=== PATIENT | female | born 1970 | race Caucasian/White ===

== ENCOUNTER 2016-12-06 13:30 | Emergency (ER) | payer OTHER ==
[2016-12-06 14:05] VITALS: BP 138/89
--- NOTE | 2016-12-06 14:39 | UC ---
Lower Extremity/Ankle HPI - HPI Summary HPI Summary: The patient comes in today for: 1. Right foot pain: Onset: 3 days ago. Palliative/provocative: Walking on the foot makes it worse. Wearing a post-op shoe seems to help. Quality: "shooting up my leg." Region: Right foot. Severity: 10/10 at this time, but she is not crying or grimacing, but is laughing at times. Time: Constant. Associated symptoms: Event: She had a slow increased in pain of her right foot. She states that there are spasms there. She thinks that she broke a bone lifting a foot stool with her foot. * - History of Current Complaint Chief Complaint: UCLowerExtremity Stated Complaint: RIGHT FOOT PAIN Time Seen by Provider: 12/06/16 14:32 Hx Obtained From: Patient Hx Last Menstrual Period: 8 yrs - Allergies/Home Medications Allergies/Adverse Reactions: Allergies Allergy/AdvReac Type Severity Reaction Status Date / Time Bupropion [From Wellbutrin] Allergy Severe Anaphylatic Verified 12/06/16 14:06 Shock Gabapentin Allergy Palpitation Verified 12/06/16 14:07 s PMH/Surg Hx/FS Hx/Imm Hx Previously Healthy: Yes - She denies all the diagnoses below except the ones circled. Psychological History: Depression - She stopped her medication, but complains of depression. Other History Of: Negative For: HIV, Hepatitis B, Hepatitis C, Anticoagulant Therapy - Surgical History Surgical History: Yes Surgery Procedure, Year, and Place: 02/18 HYSTERECTOMY. 05.03.12 HERNIA REPAIR. 05/21 DRAINAGE FOR INFECTION IN ABDOMEN. 06.12.12 DRAINAGE TUBE REMOVED. 2 C- SECT. T&A - Family History Known Family History: Positive: Cardiac Disease, Hypertension - Social History Occupation: Unemployed Lives: Alone Alcohol Use: None Substance Use Type: None Smoking Status (MU): Heavy Every Day Tobacco Smoker Type: Cigarettes Amount Used/How Often: 1 PPD Length of Time of Smoking/Using Tobacco: 26 Years Have You Smoked in the Last Year: Yes Household Exposure Type: Cigarettes Review of Systems Constitutional: Negative Skin: Negative Eyes: Negative ENT: Negative Respiratory: Negative All Other Systems Reviewed And Are Negative: Yes Physical Exam Triage Information Reviewed: Yes Appearance: Well-Appearing, No Pain Distress - Despite he stating that she is a 10/10 pain, she is laughing at times, and declines any pain medication even though she has not had any recently. She also wanted to walk to the x-ray department., Well-Nourished Vital Signs: Initial Vital Signs Temp 99.4 F 12/06/16 13:52 Pulse 81 12/06/16 13:52 Resp 18 12/06/16 13:52 BP 138/89 12/06/16 13:52 Vital Signs Reviewed: Yes Eyes: Positive: Conjunctiva Clear. Negative: Discharge ENT: Positive: Hearing grossly normal, Other: - Ears: Bilateral cerumen, but no canal erythema or edema. Mouth: mucous membranes pink and moist.. Negative: Pharyngeal erythema, Nasal congestion, Nasal drainage Dental: Negative: Gross Decay/Caries @, Dental Fracture @ Neck: Positive: Supple, Nontender, No Lymphadenopathy. Negative: Nuchal Rigidity Respiratory: Positive: Lungs clear, No respiratory distress, No accessory muscle use Cardiovascular: Positive: RRR, No Murmur Abdomen Description: Positive: Nontender, No Organomegaly, Soft. Negative: Distended, Guarding Musculoskeletal: Positive: Other: - Right foot: There is no edema, or erythema or ecchymosis of the top of her foot where she states that the pain is present. Flexion of the toes does not make the pain worse, but with extension of the toes, she had pain.. Negative: ROM Intact, No Edema Neurological: Positive: Alert, Muscle Tone Normal Psychological: Positive: Age Appropriate Behavior, Consolable Skin: Negative: rashes, breakdown Diagnostics - Radiology No standard instances Xray Interpretation: No Acute Changes Radiology Interpretation Completed By: Radiologist Lower Extremity Course/Dx - Differential Dx/Diagnosis Differential Diagnosis/HQI/PQRI: Cellulitis, Fracture (Closed), Sprain Provider Diagnoses: Tendonitis of the right foot. Discharge - Discharge Plan Condition: Stable Disposition: HOME Patient Education Materials: Tendinitis (ED) Referrals: CECILIA Nava [Primary Care Provider] - 1 Week (Please see your primary care provider in about one to two weeks to see how well you are doing. If you get worse, please be seen sooner.) Additional Instructions: Please stop your ibuprofen for three days while taking the prednisone.
--- NOTE | 2016-12-06 15:05 | RAD ---
INDICATION: Right foot pain COMPARISON: None TECHNIQUE: AP, lateral, and oblique views were obtained. FINDINGS: There is no acute fracture or dislocation. There is mild degenerative spurring over the dorsum of the midfoot There is soft tissue swelling. The soft tissues are normal IMPRESSION: NO ACUTE FRACTURE.
== END 2016-12-06 15:22 | disposition home or self-care (01) ==
LOC: UCCORT 13:30
DX: M77.51 Other enthesopathy of right foot and ankle (principal); Z72.0 Tobacco use
CPT/HCPCS: 99212; G0463

== ENCOUNTER 2018-01-31 09:00 | Emergency (ER) | payer OTHER ==
[2018-01-31 09:28] VITALS: BP 127/87
--- NOTE | 2018-01-31 09:51 | UC ---
Upper Extremity HPI - HPI Summary HPI Summary: Right arm pain for two days which started suddenly after lifting a heavy garbage. No new neck pain or numbness. She points to the pain being inthe anterior biceps. - History of Current Complaint Chief Complaint: UCTrauma Stated Complaint: RT ARM INJURY Time Seen by Provider: 01/31/18 09:44 Hx Obtained From: Patient Hx Last Menstrual Period: 8 yrs Onset/Duration: Sudden Onset, Lasting Days Severity Initially: Moderate Severity Currently: Moderate Pain Intensity: 5 Location Of Pain: Is Discrete @ - anterior biceps. Character: Sharp, Aching Aggravating Factor(s): Movement, Lifting, Flexion, Extension Alleviating Factor(s): Elevation Associated Signs And Symptoms: Negative: Swelling, Bruising, Fever, Weakness, Numbness/Tingling Related History: Dominant Hand Right - Allergies/Home Medications Allergies/Adverse Reactions: Allergies Allergy/AdvReac Type Severity Reaction Status Date / Time bupropion Allergy Severe Anaphylatic Verified 01/31/18 09:30 Shock gabapentin AdvReac Intermediate heart Verified 01/31/18 09:30 palpitations Home Medications: Home Medications cloNIDine TAB* [Catapres 0.1 MG TAB*] 0.1 mg PO DAILY 01/31/18 [History Confirmed 01/31/18] traMADol TAB* [Ultram*] 25 mg PO Q6HR PRN 01/31/18 [History Confirmed 01/31/18] PMH/Surg Hx/FS Hx/Imm Hx Previously Healthy: No - spine disease. Other History Of: Negative For: HIV, Hepatitis B, Hepatitis C, Anticoagulant Therapy - Surgical History Surgical History: Yes Surgery Procedure, Year, and Place: 02/18 HYSTERECTOMY-Partial. 05.03.12 HERNIA REPAIR, spigilean + umbilical. 05/21 DRAINAGE FOR INFECTION IN ABDOMEN. 06.12.12 DRAINAGE TUBE REMOVED. 2 C-SECT. T&A - Family History Known Family History: Positive: Cardiac Disease, Hypertension - Social History Lives: With Family Alcohol Use: None Substance Use Type: None Smoking Status (MU): Heavy Every Day Tobacco Smoker Type: Cigarettes Amount Used/How Often: 1 PPD Length of Time of Smoking/Using Tobacco: 26 Years Have You Smoked in the Last Year: Yes Household Exposure Type: Cigarettes Review of Systems Musculoskeletal: Arthralgia, Myalgia All Other Systems Reviewed And Are Negative: Yes Physical Exam Triage Information Reviewed: Yes Appearance: Well-Appearing, No Pain Distress, Obese Vital Signs: Initial Vital Signs Temp 98.8 F 01/31/18 09:24 Pulse 76 01/31/18 09:24 Resp 16 01/31/18 09:24 BP 127/87 01/31/18 09:24 Pulse Ox 99 01/31/18 09:24 Vital Signs Reviewed: Yes Eyes: Positive: Conjunctiva Clear ENT: Positive: Normal ENT inspection Neck: Positive: Supple, Nontender. Negative: Nuchal Rigidity Respiratory: Negative: Respiratory distress Cardiovascular: Positive: Brisk Capillary Refill Abdomen Description: Positive: Distended Musculoskeletal: Positive: Other: - Right anterior biceps pain without deformity or asymmetry or bruising. Hook sign intact. There is no weakness or severe pain with active forearm suppination or pronation. There is no shoulder tenderness or pain with lateral abduction. Neurological: Positive: Alert, Muscle Tone Normal. Negative: Fatigued Psychological: Positive: Age Appropriate Behavior Skin: Negative: rashes Upper Extremity Course/Dx - Course Course Of Treatment: possible small biceps muscle tear. There is no bruising or obvious weakness. No tendon rupture. - Differential Dx/Diagnosis Provider Diagnoses: biceps injury. Discharge - Sign-Out/Discharge Documenting (check all that apply): Patient Departure - Discharge Plan Condition: Good Disposition: HOME Patient Education Materials: Muscle Strain (ED) Referrals: Ebenezer Anderson MD [Medical Doctor] - Mary Davey MD [Primary Care Provider] - - Billing Disposition and Condition Condition: GOOD Disposition: Home
== END 2018-01-31 09:51 | disposition home or self-care (01) ==
LOC: UCCORT 09:00
DX: S46.901A Unspecified injury of unspecified muscle, fascia and tendon at shoulder and upper arm level, right arm, initial encounter (principal); F17.210 Nicotine dependence, cigarettes, uncomplicated; X50.0XXA Overexertion from strenuous movement or load, initial encounter; Z88.8 Allergy status to other drugs, medicaments and biological substances; Y93.89 Activity, other specified; Y92.9 Unspecified place or not applicable
CPT/HCPCS: 99212; G0463

== ENCOUNTER 2019-03-24 14:16 | Emergency (ER) | payer OTHER ==
[2019-03-24 14:43] VITALS: BP 133/80
--- NOTE | 2019-03-24 15:04 | UC ---
Palpitation/Dysrhythmia HP - HPI Summary HPI Summary: 48 yo female with three day hx of palpitations and weakness/dizziness heart rate races into the 130s with minimal effort and she needs to sit down no CP she does become diaphoretic with these spells being worked up by Dr. Hernandez for right neck swelling recently started potassium supplements for low K (two seeks ago) no n/v has gained 5 pounds the past few weeks - History of Current Complaint Chief Complaint: UCGeneralIllness Stated Complaint: RACING HEART Time Seen by Provider: 03/24/19 14:28 Hx Obtained From: Patient Hx Last Menstrual Period: 2011 Onset/Duration: Gradual Onset, Lasting Weeks Timing: Intermittent Episodes Lasting: - minutes Severity Initially: Moderate Pain Intensity: 8 - chronic LBP Character: Fast, Pounding Aggravating Factor(s): Exertion Alleviating Factor(s): Rest Associated Signs & Symptoms: Positive: Lightheadedness, Dizzy - Allergy/Home Medications Allergies/Adverse Reactions: Allergies Allergy/AdvReac Type Severity Reaction Status Date / Time bupropion Allergy Severe Anaphylatic Verified 03/24/19 14:43 Shock gabapentin AdvReac Intermediate heart Verified 03/24/19 14:43 palpitations mold mildew Allergy Itching Uncoded 03/24/19 14:43 Home Medications: Home Medications Biotin 0 mg PO QAM 03/24/19 [History Confirmed 03/24/19] Hctz 1 dose PO QAM 03/24/19 [History Confirmed 03/24/19] Potassium 10 units PO QAM 03/24/19 [History Confirmed 03/24/19] PMH/Surg Hx/FS Hx/Imm Hx Previously Healthy: Yes Cardiovascular History: Hypertension Other History Of: Negative For: HIV, Hepatitis B, Hepatitis C, Anticoagulant Therapy - Surgical History Surgical History: Yes Surgery Procedure, Year, and Place: 02/18 HYSTERECTOMY-Partial. 05.03.12 HERNIA REPAIR, spigilean + umbilical. 05/21 DRAINAGE FOR INFECTION IN ABDOMEN. 06.12.12 DRAINAGE TUBE REMOVED. 2 C-SECT. T&A - Family History Known Family History: Positive: Cardiac Disease, Hypertension - Social History Alcohol Use: None Substance Use Type: None Smoking Status (MU): Light Every Day Tobacco Smoker Type: Cigarettes Amount Used/How Often: 1 PPD Length of Time of Smoking/Using Tobacco: 26 Years Have You Smoked in the Last Year: Yes Household Exposure Type: Cigarettes Review of Systems All Other Systems Reviewed And Are Negative: Yes Constitutional: Positive: Fatigue Skin: Positive: Negative Eyes: Positive: Negative ENT: Positive: Negative Respiratory: Positive: Negative Cardiovascular: Positive: Palpitations Gastrointestinal: Positive: Negative Genitourinary: Positive: Frequency Musculoskeletal: Positive: Other: - chronic LBP Neurological: Positive: Negative Psychological: Positive: Negative Physical Exam Triage Information Reviewed: Yes Appearance: Well-Appearing, No Pain Distress, Well-Nourished Vital Signs: Initial Vital Signs Temp 98.8 F 03/24/19 14:32 Pulse 95 03/24/19 14:32 Resp 18 03/24/19 14:32 BP 133/80 03/24/19 14:32 Pulse Ox 98 03/24/19 14:32 Vital Signs Reviewed: Yes Eyes: Positive: Conjunctiva Clear ENT: Positive: Hearing grossly normal. Negative: Nasal congestion, Nasal drainage, Trismus, Muffled voice, Hoarse voice Neck: Positive: Supple, Nontender, No Lymphadenopathy Respiratory: Positive: Lungs clear, Normal breath sounds, No respiratory distress, No accessory muscle use Cardiovascular: Positive: RRR, No Murmur Abdomen Description: Positive: Nontender, No Organomegaly. Negative: CVA Tenderness (R), CVA Tenderness (L) Musculoskeletal: Positive: ROM Intact, No Edema Neurological: Positive: Alert Psychological Exam: Normal Skin Exam: Normal Diagnostics - Laboratory Lab Results: bs 142 - Radiology No standard instances Radiology Interpretation Completed By: Radiologist Summary of Radiographic Findings: #. Stigmata of probable obstructive lung disease. No acute pulmonary or cardiac process evident. - EKG Cardiac Rate: NL Cardiac Rhythm: Sinus: Normal Ectopy: None ST Segment: Normal Palpitations Course/Dx - Course Course Of Treatment: I suggested that the patient go to the ER for investigation of her symptoms that could potentially be due to a serious and even life threatening cause I explained she may go into a rhythm that may need to be shocked She refuses to go to the ER States she we see here doctor this week Aware that she could have a life threatening cause of her symptoms - Differential Dx/Diagnosis Provider Diagnosis: Palpitations, Syncope, near, Diaphoresis Discharge ED - Sign-Out/Discharge Documenting (check all that apply): Patient Departure All imaging exams completed and their final reports reviewed: Yes - Discharge Plan Condition: Guarded Disposition: AGAINST MEDICAL ADVICE Patient Education Materials: Heart Palpitations (ED), Near Syncope (ED) Referrals: Mary Davey MD [Primary Care Provider] - As Soon As Possible Additional Instructions: As discussed I think you should go to the ER for evaluation of your symptoms If you go there please bring a copy of your chest XR Your blood sugar her was 142 see your doctor first available appt - Billing Disposition and Condition Condition: GUARDED Disposition: Against Medical Advice
--- OUTSIDE RECORDS SUMMARY | 2019-03-24 15:17 | XMS REPORT | Continuity of Care Document ---
:1970 External Reference #:[id number] Author Name Tonja Kiran NP (transmitted by agent of provider Emily Tineo) Address [address] [place] [address] Care Team Providers Name Role Phone Mary Marina BELKIS Care Team Information Suggestion Clerk [phone] Problems Description No Information Available Social History Type Date Description Comments Sex Unknown Tobacco Use Start: Unknown Current Cigarette Smoker 1 Pack Daily ETOH Use Rare Use Of Alcohol Recreational Drug Use Never Used Drugs Allergies, Adverse Reactions, Alerts Active Allergies Reaction Severity Comments Date Zyban Anaphylaxis 02/21/2014 Mold 02/21/2014 Mildew 02/21/2014 Medications Active Medications SIG Qnty Indications Ordering Provider Date Tramadol HCL 1-2. tab q4h. Unknown 50mg Tablets for pain Immunizations Description No Information Available Vital Signs Date Vital Result Comment 03/21/2019 1:58pm Weight 205.00 lb Height 63 inches 5'3" BMI (Body Mass Index) 36.3 kg/m2 BP Systolic 137 mmHg BP Diastolic 101 mmHg Heart Rate 88 /min O2 % BldC Oximetry 97 % Body Temperature 96.9 F Pain Level 0 04/02/2018 1:59pm Weight 207.00 lb Height 63 inches 5'3" BMI (Body Mass Index) 36.7 kg/m2 BP Systolic 137 mmHg BP Diastolic 85 mmHg Heart Rate 87 /min O2 % BldC Oximetry 98 % Body Temperature 98.3 F [place] Score 15 Pain Level 0 Results Description No Information Available Procedures Description No Information Available Medical Devices Description No Information Available Encounters Description No Information Available Assessments Description No Information Available Plan of Treatment 04/12/2017 - Tonja Kiran [id number] Sleep disorder, [id number] SnoringNew Orders:PSG - Sleep Study, Scheduled: 04/24/17 Functional Status Description No Information Available Mental Status Description No Information Available Referrals Description No Information Available
[2019-03-25 11:35] LABS: ABS Eosinophils 0.1 10^3/ul (0-0.6); ABS Lymphocytes 1.9 10^3/ul (1.0-4.8); ABS Monocytes 0.4 10^3/ul (0-0.8); ABS Neutrophils 4.7 10^3/ul (1.5-7.7); Eosinophil % 1.8 %; Hematocrit 44 % (35-47); Hemoglobin 15.1 g/dL (12.0-16.0); Lymphocyte % 26.9 %; Mean Corpuscular HGB Conc 34 g/dL (31-36); Mean Corpuscular Hemoglobin 32 pg (27-31); Mean Corpuscular Volume 95 fL (80-97); Mean Platelet Volume 10.1 fL (7.4-10.4); Nucleated Red Blood Cells % 0.1; Platelet Count 204 10^3/uL (150-450); Red Blood Count 4.66 10^6 /uL (3.70-4.87); Red Cell Distribution Width 13 % (10-15); White Blood Count 7.2 10^3/uL (3.5-10.8)
== END 2019-03-24 15:39 | disposition left against medical advice (07) ==
LOC: UCCORT 14:16
DX: R00.2 Palpitations (principal); R55 Syncope and collapse; R61 Generalized hyperhidrosis; I10 Essential (primary) hypertension; F17.210 Nicotine dependence, cigarettes, uncomplicated
CPT/HCPCS: 36415; 71046; 85025; 93005; 99212; G0463

== ENCOUNTER 2019-05-06 19:59 | Emergency (ER) | payer OTHER ==
[2019-05-06 20:41] VITALS: BP 122/69
--- NOTE | 2019-05-06 21:08 | ED ---
Upper Extremity Pain - HPI Summary HPI Summary: 48 yr old female with the complaint of left middle finger pain. The patient has pain over the middle and distal phalanx area. She was standing with her hand on a wall talking to someone and felt pain in the finger. Pain is moderate. No bruise, no deformity, no no soft tissue swelling. - History of Current Complaint Chief Complaint: UCUpperExtremity Stated Complaint: RT MIDDLE FINGER PAIN Time Seen by Provider: 05/06/19 20:36 Hx Last Menstrual Period: 2011 - Allergies/Home Medications Allergies/Adverse Reactions: Allergies Allergy/AdvReac Type Severity Reaction Status Date / Time bupropion Allergy Severe Anaphylatic Verified 05/06/19 20:41 Shock gabapentin AdvReac Intermediate heart Verified 05/06/19 20:41 palpitations mold mildew Allergy Itching Uncoded 05/06/19 20:41 Home Medications: Home Medications Hydrochlorothiazide TAB* [Hydrodiuril TAB*] 25 mg PO DAILY 05/06/19 [History Confirmed 05/06/19] Propranolol TAB* [Inderal TAB*] 10 mg PO DAILY 05/06/19 [History Confirmed 05/06] PMH/Surg Hx/FS Hx/Imm Hx Endocrine/Hematology History: Denies: Hx Anticoagulant Therapy, Hx Diabetes Cardiovascular History: Denies: Hx Hypertension, Hx Pacemaker/ICD Respiratory History: Denies: Hx Asthma Sensory History: Denies: Hx Hearing Aid Psychiatric History: Denies: Hx Panic Disorder - Surgical History Surgery Procedure, Year, and Place: 02/18 HYSTERECTOMY-Partial. 05.03.12 HERNIA REPAIR, spigilean + umbilical. 05/21 DRAINAGE FOR INFECTION IN ABDOMEN. 06.12.12 DRAINAGE TUBE REMOVED. 2 C-SECT. T&A Infectious Disease History: No Infectious Disease History: Denies: Traveled Outside the [place] in Last 30 Days - Family History Known Family History: Positive: Cardiac Disease, Hypertension - Social History Alcohol Use: None Substance Use Type: Reports: None Smoking Status (MU): Light Every Day Tobacco Smoker Type: Cigarettes Amount Used/How Often: 4 cigs daily Length of Time of Smoking/Using Tobacco: 26 Years Have You Smoked in the Last Year: Yes Review of Systems Constitutional: Negative Positive: Other - left middle finger pain All Other Systems Reviewed And Are Negative: Yes Physical Exam Triage Information Reviewed: Yes Vital Signs On Initial Exam: Initial Vitals Temp Pulse Resp BP Pulse Ox 97.4 F 98 17 122/69 99 05/06/19 20:33 05/06/19 20:33 05/06/19 20:33 05/06/19 20:33 05/06/19 20:33 Vital Signs Reviewed: Yes Appearance: Positive: Well-Appearing, No Pain Distress Skin: Positive: Warm, Skin Color Reflects Adequate Perfusion Head/Face: Positive: Normal Head/Face Inspection Eyes: Positive: EOMI ENT: Positive: Normal ENT inspection Respiratory/Lung Sounds: Positive: Clear to Auscultation Cardiovascular: Positive: Pulses are Symmetrical in both Upper and Lower Extremities Abdomen Description: Negative: Distended Musculoskeletal: Positive: Other - left middle finger without STS, without deformity, without redness or bruising. She is not tender to palpation. he has intact flexion and extension. Neurological: Positive: Sensory/Motor Intact, Alert, Oriented to Person Place, Time, CN Intact II-III Psychiatric: Positive: Normal Diagnostics - Vital Signs Vital Signs Temp Pulse Resp BP Pulse Ox 05/06/19 20:33 97.4 F 98 17 122/69 99 - Laboratory Lab Statement: Any lab studies that have been ordered have been reviewed, and results considered in the medical decision making process. - Radiology left middle finger Radiology Interpretation Completed By: ED Physician - NAD Course/Dx - Course Course Of Treatment: 48 yr old female with normal exam of hand and finger and neg xray. FU with PMD. - Diagnoses Provider Diagnoses: Pain of left middle finger Discharge ED - Sign-Out/Discharge Documenting (check all that apply): Patient Departure All imaging exams completed and their final reports reviewed: No - Discharge Plan Condition: Good Disposition: HOME Patient Education Materials: Finger Sprain (ED) Referrals: Mary Davey MD [Primary Care Provider] - 2 Days - Billing Disposition and Condition Condition: GOOD Disposition: Home
--- NOTE | 2019-05-07 12:54 | UC ---
- Progress Note Progress Note: Patient Name: WILLIE MCKEON Medical Record#: [id number] Ordering Physician: Quintin Mosher MD Acct.#: [id number] : 1970 Age: 48 Sex: F Location: [facility] Exam Date: 05/06/192045 ADM Status: [facility] ER Order Information: FINGER LEFT MIDDLE Accession Number: [id number] CPT: 63256 INDICATION: Left middle finger pain. TECHNIQUE: 3 views of the left middle finger were obtained. FINDINGS: The bones are normal alignment. No fracture is seen. 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 IMPRESSION: NO EVIDENCE FOR FRACTURE. R0 Preliminary Imaging Read R0 <Electronically signed by Aron Aguillon MD in OV> 05/07/19725 Dictated By: Aron Aguillon MD Dictated Date/Time: 05/07/19724 Transcribed Date/Time: 05/07/19724 Copy to: CC:Mary Davey MD; Quintin Mosher MD Imaging - [facility] Imaging - [facility] [address] [place] [address] ph [phone]) ph ([phone]) ph ([phone]) This report is only to be considered final once signed by the Provider(s) as displayed in the "<Electronically Signed by >" field (s). Absence of a signature indicates the report is in a draft status and still needs to be finalized. In the event this document was created by someone other than the signing Provider, the individual initiating the document will be listed in the "Entered by:" or "Dictated by:" mauricio. 1 of 1 Course/Dx - Diagnoses Provider Diagnoses: Pain of left middle finger Discharge ED - Sign-Out/Discharge Documenting (check all that apply): Post-Discharge Follow Up All imaging exams completed and their final reports reviewed: Yes - Discharge Plan Condition: Good Disposition: HOME Patient Education Materials: Finger Sprain (ED) Referrals: Mary Davey MD [Primary Care Provider] - 2 Days - Billing Disposition and Condition Condition: GOOD Disposition: Home
== END 2019-05-06 21:50 | disposition home or self-care (01) ==
LOC: UCCORT 19:59
DX: M79.645 Pain in left finger(s) (principal); F17.210 Nicotine dependence, cigarettes, uncomplicated; Z88.8 Allergy status to other drugs, medicaments and biological substances; Z91.09 Other allergy status, other than to drugs and biological substances
CPT/HCPCS: 73140; 99211; G0463

== ENCOUNTER 2019-07-18 20:35 | Emergency (ER) | payer OTHER ==
--- OUTSIDE RECORDS SUMMARY | 2019-07-18 20:43 | XMS REPORT | Summary of Care ---
:1970 Author Organization [facility] Address [address] [place] [address] Care Team Providers Name Role Phone Mary Davey MD Primary Care Provider Reason for Referral Diagnostic Radiology (Routine) Status Reason Specialty Diagnoses / Procedures Referred By Referred To Contact Contact Authorized Radiology Diagnoses Right hip pain Primary osteoarthritis of right hip Connor Livingston, Procedures IR Imaging Guided Needle, Drain Procedure PA [address] [place] [address] Email: [email or web address] Reason for Visit Reason Comments Follow-up Right Hip Pain - wants an IR Injection Encounter Details Date Type Department Care Team Description 07/09/2019 Office Visit [facility]ics[facility] Ryan Right hip pain (Primary Dx); [facility] P, [place] Primary osteoarthritis of right hip [address] [place] [address] [facility] [address] [place] [address] [phone] Allergies Active Allergy Reactions Severity Noted Date Comments Bupropion Anaphylaxis, Swelling High 09/28/2016 SOB documented as of this encounter (statuses as of 07/13/2019) Medications Medication Sig Dispensed Refills Start Date End Date Status tramadol (ULTRAM) 50 MG Take 50 mg by 2 03/21/2018 Active tablet mouth every 8 (eight) hours as needed Propranolol HCl 10 MG Oral TAKE 1 T PO 0 06/24/2019 Active Tablet (INDERAL) BID hydroCHLOROthiazide 25 MG TK 1 T PO Q 0 06/24/2019 Active Oral Tablet (HYDRODIURIL) DAY Klor-Con M10 10 MEQ Oral TAKE 2 TABLETS 0 06/24/2019 Active Tablet Extended Release EVERY DAY CLONAZEPAM PO Take by mouth 0 Active as needed documented as of this encounter (statuses as of 07/13/2019) Active Problems Problem Noted Date Right hip pain 11/07/2017 Primary osteoarthritis of right hip 11/07/2017 documented as of this encounter (statuses as of 07/13/2019) Social History Tobacco Use Types Packs/Day Years Used Date Current Every Day Smoker Cigarettes 1 29 Smokeless Tobacco: Never Used Alcohol Use Drinks/Week oz/Week Comments Yes occ Sex Assigned at Date Recorded Not on file Job Start Date Occupation Industry Not on file Not on file Not on file Travel History Travel Start Travel End No recent travel history available. documented as of this encounter Last Filed Vital Signs Vital Sign Reading Time Taken Comments Blood Pressure - - Pulse - - Temperature - - Respiratory Rate - - Oxygen Saturation - - Inhaled Oxygen Concentration - - Weight 96 kg (211 lb 10.3 oz) 07/09/2019 11:32 AM EST Height 157.5 cm (5' 2") 07/09/2019 11:32 AM EST Body Mass Index 38.71 07/09/2019 11:32 AM EST documented in this encounter Patient Instructions Patient InstructionsKatherin Mcdaniel LPN - 07/09/2019 1:00 PM ESTThe patient is instructed to call the office with any question/concerns or if symptoms worsen. documented in this encounter Progress Notes Connor Livingston, CONRADO - 07/09/2019 1:00 PM EST Established Patient, Subsequent Encounter Dx: 1. Right hip pain with reportedly good response to a first intra-articular injection, but less robust response to the last injection, now with recurrent symptoms 2. #1 in the setting of chronic lumbar spine issues managed by pain clinic Attending: Tyrese German MD Chief Complaint Patient presents with Follow-up Right Hip Pain - wants an IR Injection HPI: Jason Perez is a 48 y.o. female who returns to the office for follow-up for right hip pain in the setting of lumbar issues as well. She still continues to follow with the pain clinic. Dr. Almanza sent her for an intra-articular injection although suspicion of hip etiology of her pain was low. She states the first injection she had earlier this year did give her good relief, however when she had a repeat injection a few months later, she did not get as good relief. She is convinced that the injection: Did not go all the way in to the hip." We had reviewed the arthrogram imaging when shecalled to complain about this, and it clearly was in the joint. Regardless, the patient requests repeat injection due to the improvement that she had after the first injection.. She continues to complain of groin pain on the right side. No new trauma. There has been no interval trauma. The patient denies fevers, chills, sweats. No neurological complaints. Medical history, family history, social history, medications, allergies and review of systems are documented in the electronic record and reviewed today with the patient. PHYSICAL EXAMINATION: General: Pleasant, cooperative, A&O, NAD. Gait: nonantalgic LEFT HIP- Limited and painful passive ROM but without crepitus or instability. Stinchfield testing positive for groin pain. Impingement testing positive for groin pain. ADRI testing negative except mild lateral hip pain. Minimally tender over GT bursa. Skin over hip without redness, warmth, masses. Limb lengths- symmetric. Nontender over the groin. Trendelenberg gait- negative. Neurovascular status distally on the involved side shows intact foot dorsiflexion/plantarflexion/EHL, normal light touch sensation in the deep and superficial peroneal nerve distribution as well as themedial and lateral plantar nerve distributions; foot is well perfused. Symmetric with contralateral. IMAGING: Xr Hip - Unilateral, 2-3 Views Right Result Date: 07/11/2019 IMPRESSION: No acute fracture or dislocation. Mild degenerative changes involving both acetabula. ASSESSMENT: 1. Right hip pain with reportedly good response to a first intra-articular injection, but less robust response to the last injection, now with recurrent symptoms 2. #1 in the setting of chronic lumbar spine issues managed by pain clinic PLAN: Options have been reviewed with Jason. I again reviewed the last intra- articular injection arthrogram imaging with the patient showing her the it was a good injection with clear evidence of intra-articular catheter placement. Regardless, she wants to try the injection again. I agreed to send her for 1 more injection, but if she does not get any relief with this injection, I would not consider repeating these injections. She is agreeable to plan The patient was instructed to call the office with any questions/concerns or if symptoms worsen. Follow-up: PRN Imaging Next Visit: parent Orders Placed This Encounter IR Imaging Guided Needle, Drain Procedure CC: Mary Davey MD This document was dictated using [employer] software. A reasonable attempt at proof reading has been made to minimize errors. Please call our office if you have any questions. documented in this encounter Plan of Treatment Name Type Priority Associated Diagnoses Order Schedule IR Imaging Guided Imaging Routine Right hip pain Expected: Needle, Drain Primary osteoarthritis of 07/09/2019, Expires: Procedure right hip 10/07/2020 Health Maintenance Due Date Last Done Comments MMR Vaccines (1 of 1 - Standard 10/29/1971 series) Varicella Vaccines (1 of 2 - 10/29/1971 2-dose childhood series) Pneumococcal Vaccine: Pediatrics 1976 (0 to 5 Years) and At-Risk Patients (6 to 64 Years) (1 of 1 - PPSV23) DTaP,Tdap,and Td Vaccines (1 - 1977 Tdap) HIV Screening 10/29/1983 Cervical Cancer Screening 5 years 10/29/1991 Influenza Vaccine 04/09/2019 Pneumococcal Vaccine: 65+ Years (1 10/29/2035 of 2 - PCV13) HIB Vaccines Aged Out No longer eligible based on patient's age to complete this topic Hepatitis A Vaccines Aged Out No longer eligible based on patient's age to complete this topic Hepatitis B Vaccines Aged Out No longer eligible based on patient's age to complete this topic IPV Vaccines Aged Out No longer eligible based on patient's age to complete this topic documented as of this encounter Results Not on filedocumented in this encounter Visit Diagnoses Diagnosis Right hip pain - Primary Pain in joint, pelvic region and thigh Primary osteoarthritis of right hip Primary localized osteoarthrosis, pelvic region and thigh documented in this encounter
[2019-07-18 20:48] VITALS: BP 144/88
--- NOTE | 2019-07-18 20:58 | UC ---
Lower Extremity/Ankle HPI - HPI Summary HPI Summary: injured left 4th toe this morning while coming down stairs at home, missed a step, c/o "burning, shooting" pain in right lateral lower leg - History of Current Complaint Chief Complaint: UCLowerExtremity Stated Complaint: LEFT SECOND TOE AND RIGHT LEG INJ FROM FALL Time Seen by Provider: 07/18/19 20:54 Hx Obtained From: Patient Hx Last Menstrual Period: 2011 ?: No Onset/Duration: Sudden Onset, Lasting Hours Severity Initially: Mild Severity Currently: Mild Pain Intensity: 2 Able to Bear Weight: Yes - Allergies/Home Medications Allergies/Adverse Reactions: Allergies Allergy/AdvReac Type Severity Reaction Status Date / Time bupropion Allergy Severe Anaphylatic Verified 07/18/19 20:48 Shock gabapentin AdvReac Intermediate heart Verified 07/18/19 20:48 palpitations mold mildew Allergy Itching Uncoded 07/18/19 20:48 PMH/Surg Hx/FS Hx/Imm Hx Previously Healthy: Yes Other History Of: Negative For: HIV, Hepatitis B, Hepatitis C, Anticoagulant Therapy - Surgical History Surgical History: Yes Surgery Procedure, Year, and Place: 02/18 HYSTERECTOMY-Partial. 05.03.12 HERNIA REPAIR, spigilean + umbilical. 05/21 DRAINAGE FOR INFECTION IN ABDOMEN. 06.12.12 DRAINAGE TUBE REMOVED. 2 C-SECT. T&A - Family History Known Family History: Positive: Cardiac Disease, Hypertension - Social History Alcohol Use: None Substance Use Type: None Smoking Status (MU): Light Every Day Tobacco Smoker Type: Cigarettes Amount Used/How Often: 4 cigs daily Length of Time of Smoking/Using Tobacco: 26 Years Have You Smoked in the Last Year: Yes Household Exposure Type: Cigarettes Review of Systems All Other Systems Reviewed And Are Negative: Yes Skin: Positive: Bruising Musculoskeletal: Positive: Myalgia Physical Exam Triage Information Reviewed: Yes Appearance: Well-Appearing, Pain Distress, Obese Vital Signs: Initial Vital Signs Temp 97.5 F 07/18/19 20:42 Pulse 95 07/18/19 20:42 Resp 18 07/18/19 20:42 BP 144/88 07/18/19 20:42 Pulse Ox 100 07/18/19 20:42 Vital Signs Reviewed: Yes Eye Exam: Normal ENT Exam: Normal Respiratory Exam: Normal Cardiovascular Exam: Normal Abdominal Exam: Normal Musculoskeletal: Positive: ROM Intact, No Edema, Other: - pain with palpation Neurological Exam: Normal Psychological Exam: Normal Skin: Positive: Other - bruising of the left second toe Lower Extremity Course/Dx - Course Course Of Treatment: hx obtained, exam performed ,meds reviewed, xray obtained, per patients insistance, patient refused pain medication, no apparent fractures on xray. post op shoe and gel splint offered and refused - Differential Dx/Diagnosis Differential Diagnosis/HQI/PQRI: Fracture (Closed), Sprain, Strain Provider Diagnosis: Strain of peroneal tendon of right foot, Injury of toe on left foot Discharge ED - Sign-Out/Discharge Documenting (check all that apply): Patient Departure All imaging exams completed and their final reports reviewed: No - Discharge Plan Condition: Stable Disposition: HOME Patient Education Materials: Muscle Strain (ED) Referrals: Mary Davey MD [Primary Care Provider] - Additional Instructions: 1. epsom salt soaks for the toe daily 2. ibuprofen 400 - 600 mg every 4-6 hours for pain 3. heat the side of the leg multiple times a day and then allow rest for next 48 hours. - Billing Disposition and Condition Condition: STABLE Disposition: Home - Attestation Statements Provider Attestation: Per institutional requirements, I have reviewed the chart, however, I was not consulted specifically or made aware of this patient by the midlevel provider. I did not personally evaluate, interact with, or disposition this patient. EK
--- NOTE | 2019-07-19 08:14 | UC ---
- Progress Note Progress Note: Reviewed reports of ankle and foot xrays per Dr. Ortiz: no fracture identified , consistent with wet read. No change in management based on report. Course/Dx - Diagnoses Provider Diagnoses: Strain of peroneal tendon of right foot, Injury of toe on left foot Discharge ED - Sign-Out/Discharge Documenting (check all that apply): Post-Discharge Follow Up All imaging exams completed and their final reports reviewed: Yes - Discharge Plan Condition: Stable Disposition: HOME Patient Education Materials: Muscle Strain (ED) Referrals: Mary Davey MD [Primary Care Provider] - Additional Instructions: 1. epsom salt soaks for the toe daily 2. ibuprofen 400 - 600 mg every 4-6 hours for pain 3. heat the side of the leg multiple times a day and then allow rest for next 48 hours. - Billing Disposition and Condition Condition: STABLE Disposition: Home
--- NOTE | 2019-07-20 12:24 | UC ---
- Progress Note Progress Note: Both xray reports are reviewed and neg. c/w providers interpretation. no change. Course/Dx - Diagnoses Provider Diagnoses: Strain of peroneal tendon of right foot, Injury of toe on left foot Discharge ED - Sign-Out/Discharge Documenting (check all that apply): Patient Departure All imaging exams completed and their final reports reviewed: Yes - Discharge Plan Condition: Stable Disposition: HOME Patient Education Materials: Muscle Strain (ED) Referrals: Mary aDvey MD [Primary Care Provider] - Additional Instructions: 1. epsom salt soaks for the toe daily 2. ibuprofen 400 - 600 mg every 4-6 hours for pain 3. heat the side of the leg multiple times a day and then allow rest for next 48 hours. - Billing Disposition and Condition Condition: STABLE Disposition: Home
== END 2019-07-18 21:23 | disposition home or self-care (01) ==
LOC: UCCORT 20:35
DX: S86.311A Strain of muscle(s) and tendon(s) of peroneal muscle group at lower leg level, right leg, initial encounter (principal); S99.922A Unspecified injury of left foot, initial encounter; F17.210 Nicotine dependence, cigarettes, uncomplicated; Z91.09 Other allergy status, other than to drugs and biological substances; Z88.8 Allergy status to other drugs, medicaments and biological substances; W10.9XXA Fall (on) (from) unspecified stairs and steps, initial encounter; Y92.009 Unspecified place in unspecified non-institutional (private) residence as the place of occurrence of the external cause
CPT/HCPCS: 99211; G0463

== ENCOUNTER 2019-08-13 11:59 | Emergency (ER) | payer OTHER ==
--- OUTSIDE RECORDS SUMMARY | 2019-08-13 12:26 | XMS REPORT | Summary of Care ---
:1970 Author Organization [facility] Address [address] [place] [address] Care Team Providers Name Role Phone Mary Davey MD Primary Care Provider Reason for Referral Diagnostic Radiology (Routine) Status Reason Specialty Diagnoses / Procedures Referred By Referred To Contact Contact Authorized Radiology Diagnoses Right hip pain Primary osteoarthritis of right hip Connor Livingston, Procedures IR Imaging Guided Needle, Drain Procedure PA [address] [place] [address] Email: [email or web address] Reason for Visit Auth/Cert Status Reason Specialty Diagnoses / Procedures Referred By Contact Referred To Contact Encounter Details Date Type Department Care Team Description 07/24/2019 Hospital Interventional Clint, Right hip pain; Encounter Radiology Community Primary osteoarthritis of right hip [place] [address] [place] [id number] Allergies Active Allergy Reactions Severity Noted Date Comments Bupropion Anaphylaxis, Swelling High 09/28/2016 SOB documented as of this encounter (statuses as of 07/24/2019) Medications Medication Sig Dispensed Refills Start Date [...] as of this encounter (statuses as of 07/24/2019) Active Problems Problem Noted Date Right hip pain 11/07/2017 Primary osteoarthritis of right hip 11/07/2017 documented as of this encounter (statuses as of 07/24/2019) Social History Tobacco Use Types Packs/Day Years [...] Sign Reading Time Taken Comments Blood Pressure 146/86 07/24/2019 10:36 AM EST Pulse 73 07/24/2019 10:36 AM EST Temperature 36.7 07/24/2019 10:36 AM EST C (98.1 F) Respiratory Rate 16 07/24/2019 10:36 AM EST Oxygen Saturation 97% 07/24/2019 10:36 AM EST Inhaled Oxygen Concentration - - Weight 95.3 kg (210 lb) 07/24/2019 10:36 AM EST Height 157.5 cm (5' 2") 07/24/2019 10:36 AM EST Body Mass Index 38.41 07/24/2019 10:36 AM EST documented in this encounter Discharge Instructions Discharge Instr - Other Clint Hargrove MD - 07/24/2019 11:00 AM ESTDISCHARGE INSTRUCTIONS STATUS POST JOINT INJECTION. Resume previous diet and medication. For the next 24 hours: 1. No strenuous activity. 2. No heavy lifting, nothing greater than 10 pounds. DRESSING CARE Keep clean and dry. Change dressing if it becomes wet or dirty. Wash your hands before AND after each dressing change. Bruising and discoloration on the skin and around the injection site is normal. Expect some mild pain around the site after the numbing medicine wears off. If you experience excessive bleeding, redness, soreness, swelling around the injection site, increase in pain that does not get better with time and medicine, or Temperature over 100.4 F call the number below. In case of emergency go to the nearest Emergency Department. For concerns regarding you incision, call Interventional radiology. Monday - Monday 7 a.m. - 4:30 p.m. Call After hours and weekends, call documented in this encounter Plan of Treatment Health Maintenance Due Date Last Done Comments [...] this topic documented as of this encounter Procedures Procedure Name Priority Date/Time Associated Diagnosis Comments IR IMAGE GUIDED Routine 07/24/2019 11:15 Right hip pain Results for this NEEDLE DRAIN AM EST Primary osteoarthritis procedure are in PROCEDURE of right hip the results section. documented in this encounter Results IR Imaging Guided Needle, Drain Procedure (07/24/2019 11:15 AM EST) Specimen Impressions Performed At IMPRESSION: [facility] Technically successful right hip steroid injection. Attestation I, CLINT PARISI, attest that I was present for the entire procedure. I reviewed the stored images and agree with the report as written. PLAN: The patient will follow up with the referring physician. Narrative Performed At EXAMINATION: [facility] IR HIP JOINT INJECTION PROCEDURE SUMMARY: Fluoroscopic guided right hip joint marking devices assembler: Attending(s): Clint Parisi MD Gang Bore Operator(s): None CLINICAL INFORMATION: Pre-procedure diagnosis: Right Hip pain Post-procedure diagnosis: Same COMPLICATIONS: No immediate complications Estimated Blood Loss: none MEDICATIONS 8 ml 1 % lidocaine 80 milligrams Depomedrol CONTRAST 5 Ml Omnipaque 240 FLUOROSCOPY TIME/DOSE: 14 seconds, 3.1 mGy ANESTHESIA/SEDATION Level of anesthesia: local anesthesia Anesthesia administered by: Not applicable Duration of anesthesia/sedation: 0 minutes. DESCRIPTION OF PROCEDURE: The risks, benefits and alternatives of the procedure were fully discussed. All questions were answered. Informed consent for the procedure was obtained and time-out was performed prior to the procedure . The site was prepared and draped using all elements of maximal sterile barrier technique including sterile gloves, sterile gown, cap, mask, large sterile sheet, hand hygiene and cutaneous antisepsis with 2% chlorhexidine. Utilizing fluoroscopic guidance and an anterior lateral approach, a 20-gauge spinal needle was inserted into the right hip joint after a 25-gauge needle has anesthestized the skin with local anesthetics . Contrast was injected to confirm intra-articular placement. Subsequently, a mixture of lidocaine and Depomedrol were administered. The needle was removed, the skin entry site was cleaned, and a sterile dressing was applied. Procedure Note Interface, Received Via [facility] - 07/24/2019 11:23 AM EST EXAMINATION: IR HIP JOINT INJECTION PROCEDURE SUMMARY: Fluoroscopic guided right hip joint marking devices assembler: Attending(s): Clint Parisi MD Gang Bore Operator(s): None CLINICAL INFORMATION: Pre-procedure diagnosis: Right Hip pain Post-procedure diagnosis: Same COMPLICATIONS: No immediate complications Estimated Blood Loss: none MEDICATIONS 8 ml 1 % lidocaine 80 milligrams Depomedrol CONTRAST 5 Ml Omnipaque 240 FLUOROSCOPY TIME/DOSE: 14 seconds, 3.1 mGy ANESTHESIA/SEDATION Level of anesthesia: local anesthesia Anesthesia administered by: Not applicable Duration of anesthesia/sedation: 0 minutes. DESCRIPTION OF PROCEDURE: The risks, benefits and alternatives of the procedure were fully discussed. All questions were answered. Informed consent for the procedure was obtained and time-out was performed prior to the procedure. The site was prepared and draped using all elements of maximal sterile barrier technique including sterile gloves, sterile gown, cap, mask, large sterile sheet , hand hygiene and cutaneous antisepsis with 2% chlorhexidine. Utilizing fluoroscopic guidance and an anterior lateral approach, a 20-gauge spinal needle was inserted into the right hip joint after a 25-gauge needle has anesthestized the skin with local anesthetics. Contrast was injected to confirm intra-articular placement. Subsequently, a mixture of lidocaine and Depomedrol were administered. The needle was removed, the skin entry site was cleaned, and a sterile dressing was applied. IMPRESSION: Technically successful right hip steroid injection. Attestation I, CLINT PARISI, attest that I was present for the entire procedure. I reviewed the stored images and agree with the report as written. PLAN: The patient will follow up with the referring physician. Performing Organization Address City/State/Zipcode Phone Number [facility] [address] [place] [address] documented in this encounter Visit Diagnoses Diagnosis Right hip pain Pain in joint, pelvic region and thigh Primary osteoarthritis of right hip Primary localized osteoarthrosis, pelvic region and thigh documented in this encounter Administered Medications Medication Order MAR Action Action Date Dose Rate Site lidocaine (XYLOCAINE) 1 % Given 07/24/2019 11:14 AM EST 8 mLs injection Code/Trauma Medication, Starting Mon07/24/19 at 1114 methylPREDNISolone acetate (DEPO-MEDROL) Given 07/24/2019 11:14 AM EST 80 mg Other injection 80 mg 80 mg, Intra-articular, Once, Mon07/24/19 at 1100, For 1 dose documented in this encounter
[2019-08-13 12:38] VITALS: BP 115/62
--- NOTE | 2019-08-13 12:59 | UC ---
Throat Pain/Nasal Godwin HPI - HPI Summary HPI Summary: sinus pain / pressure x 2 days nasal congestion/ pnd , cough cough is dry , concern about sinus infection since she is on CPAP c/o facial swelling, dental pain no fever, no chills - History of Current Complaint Chief Complaint: UCRespiratory Stated Complaint: SWOLLEN FACE Time Seen by Provider: 08/13/19 12:42 Hx Obtained From: Patient Hx Last Menstrual Period: 2011 ?: No Onset/Duration: Gradual Onset, Lasting Days - 2, Still Present Severity: Severe Pain Intensity: 10 Cough: Nonproductive Associated Signs & Symptoms: Positive: Sinus Discomfort, Nasal Discharge, Fever - Allergies/Home Medications Allergies/Adverse Reactions: Allergies Allergy/AdvReac Type Severity Reaction Status Date / Time bupropion Allergy Severe Anaphylatic Verified 08/13/19 12:31 Shock gabapentin AdvReac Intermediate heart Verified 07/18/19 20:48 palpitations mold mildew Allergy Itching Uncoded 07/18/19 20:48 PMH/Surg Hx/FS Hx/Imm Hx Cardiovascular History: Cardiac Disease, Hypertension Respiratory History: COPD Other History Of: Negative For: HIV, Hepatitis B, Hepatitis C, Anticoagulant Therapy - Surgical History Surgical History: Yes Surgery Procedure, Year, and Place: 02/18 HYSTERECTOMY-Partial. 05.03.12 HERNIA REPAIR, spigilean + umbilical. 05/21 DRAINAGE FOR INFECTION IN ABDOMEN. 06.12.12 DRAINAGE TUBE REMOVED. 2 C-SECT. T&A - Family History Known Family History: Positive: Cardiac Disease, Hypertension - Social History Alcohol Use: None Substance Use Type: None Smoking Status (MU): Light Every Day Tobacco Smoker Type: Cigarettes Amount Used/How Often: 4 cigs daily Length of Time of Smoking/Using Tobacco: 26 Years Have You Smoked in the Last Year: Yes Household Exposure Type: Cigarettes Review of Systems All Other Systems Reviewed And Are Negative: Yes Constitutional: Positive: Fever, Chills, Fatigue Skin: Positive: Negative ENT: Positive: Nasal Discharge. Negative: Sore Throat Respiratory: Positive: Cough Is Patient Immunocompromised?: No Physical Exam Triage Information Reviewed: Yes Appearance: Well-Nourished, Pain Distress, Obese Vital Signs: Initial Vital Signs Temp 97.4 F 08/13/19 12:32 Pulse 77 08/13/19 12:32 Resp 14 08/13/19 12:32 BP 115/62 08/13/19 12:32 Pulse Ox 98 08/13/19 12:32 Vital Signs Reviewed: Yes Eye Exam: Normal Eyes: Positive: Conjunctiva Clear, Conjunctiva Inflamed ENT: Positive: Normal ENT inspection, Hearing grossly normal Neck: Positive: Supple, Nontender, No Lymphadenopathy Respiratory Exam: Normal Respiratory: Positive: Chest non-tender, Lungs clear, Normal breath sounds Cardiovascular: Positive: RRR, No Murmur, Pulses Normal Throat Pain/Nasal Course/Dx - Differential Dx/Diagnosis Provider Diagnosis: Sinusitis Discharge ED - Sign-Out/Discharge Documenting (check all that apply): Patient Departure All imaging exams completed and their final reports reviewed: No Studies - Discharge Plan Condition: Stable Disposition: HOME Prescriptions: Amoxicillin/Clavulanate TAB* [Augmentin TAB 875*] 875 mg PO BID #20 tab Fluticasone NASAL SPRAY 50MCG* [Flonase NASAL SPRAY 50MCG*] 2 spray BOTH NARES DAILY #1 btl Patient Education Materials: Sinusitis (ED) Referrals: Mary Davey MD [Primary Care Provider] - If Needed - Billing Disposition and Condition Condition: STABLE Disposition: Home
[2019-08-13 13:07] LABS: Influenza A Molecular Negative (Negative); Influenza B Molecular Negative (Negative)
== END 2019-08-13 13:37 | disposition home or self-care (01) ==
LOC: UCCORT 11:59
DX: J32.9 Chronic sinusitis, unspecified (principal); I10 Essential (primary) hypertension; J44.9 Chronic obstructive pulmonary disease, unspecified; E66.9 Obesity, unspecified; K08.89 Other specified disorders of teeth and supporting structures; F17.210 Nicotine dependence, cigarettes, uncomplicated; Z88.8 Allergy status to other drugs, medicaments and biological substances; Z91.09 Other allergy status, other than to drugs and biological substances
CPT/HCPCS: 99212; G0463